=== PATIENT | male | born 1995 | race Caucasian/White ===

== ENCOUNTER 2017-01-07 00:01 | Emergency (ER) | payer OTHER ==
[~2017-01-07] VITALS: Ht 167.6 cm; Wt 99.8 kg
[~2017-01-07 00:01] MED LIST: COREG25 MG PO; IBUPROFEN 600600 M1; LISINOPRIL20 MG PO; NORVASC5 MG PO
== END 2017-01-07 00:47 | disposition home or self-care (01) ==
LOC: ER 00:01
DX: M25.572 Pain in left ankle and joints of left foot (principal); I10 Essential (primary) hypertension; F17.210 Nicotine dependence, cigarettes, uncomplicated; F10.99 Alcohol use, unspecified with unspecified alcohol-induced disorder; F12.10 Cannabis abuse, uncomplicated